=== PATIENT | female | born 1960 | race Caucasian/White ===

== ENCOUNTER → 2019-12-09 14:41 | Outpatient (BNVA) | payer OTHER, SELFPAY | PROVIDERS: PCP Internal Medicine; Visit Provider Urology | DX: Z76.89 Persons encountering health services in other specified circumstances (principal) ==

== ENCOUNTER 2020-12-06 13:56 | Outpatient (REF) | payer OTHER, SELFPAY ==
--- NOTE | ~2020-12-06 | US_ITS ---
EXAMINATION: US RETROPERITONEAL LIMITED (RENAL ONLY) CLINICAL INFORMATION: Calculus of kidney. COMPARISON: Renal ultrasound 11/30/2019 and 06/08/2019. X-ray abdomen KUB 11/30/2019. TECHNIQUE: Real-time imaging of the kidneys. FINDINGS: RIGHT KIDNEY: 11.3 x 6.3 x 5.8 cm (SAG x AP x TRV). The kidney is normal in size, contour, and echogenicity. Renal cortical thickness is normal. There is focal caliectasis versus peripelvic cyst upper midpole. There is an echogenic stone midpole measuring 0.20 0.16 x 0.20 cm. LEFT KIDNEY: 10.7 x 4.7 x 6.6 cm (SAG x AP x TRV). The kidney is normal in size, contour, and echogenicity. Renal cortical thickness is normal. No focal parenchymal lesions or hydronephrosis. There is an echogenic stone midpole measuring 0.5-0 0.3 x 0.5 cm. A dilated calyx is noted. US/US renal BI IMPRESSION: Bilateral echogenic stones. There is focal caliectasis versus peripelvic cyst upper midpole right kidney and dilated calyces in the upper and lower poles.
== END 2020-12-06 13:57 | disposition home or self-care (01) ==
LOC: HO.HMGCX 13:56
PROVIDERS: PCP Internal Medicine; Visit Provider Urology
DX: N20.0 Calculus of kidney (principal)
CPT/HCPCS: 76775

== ENCOUNTER 2021-03-14 12:26 | Outpatient (REF) | payer OTHER, SELFPAY ==
[2021-03-14 15:47] LABS: Binax Internal Control QC Valid; Binax Now Covid-19 Ag Negative (Negative)
== END 2021-03-14 12:27 | disposition home or self-care (01) ==
LOC: HO.LAB 12:26
PROVIDERS: Visit Provider Internal Medicine
DX: Z20.822 Contact with and (suspected) exposure to COVID-19 (principal)
CPT/HCPCS: 36415; C9803

== ENCOUNTER 2021-05-20 15:27 | Outpatient (REF) | payer OTHER, SELFPAY ==
--- NOTE | ~2021-05-20 | US_ITS ---
EXAMINATION: US RETROPERITONEAL LIMITED (RENAL ONLY) CLINICAL INFORMATION: Calculus of kidney. COMPARISON: Renal ultrasound 12/06/2020 and 11/30/2019. X-ray abdomen KUB 11/30/2019. TECHNIQUE: Real-time imaging of the kidneys. FINDINGS: RIGHT KIDNEY: 11.5 x 4.6 x 7.4 cm (SAG x AP x TRV). The kidney is normal in size, contour, and echogenicity. Renal cortical thickness is normal. No calculi or focal parenchymal lesions. No hydronephrosis. The calyces appear dilated. LEFT KIDNEY: 11.2 x 6.0 x 6.6 cm (SAG x AP x TRV). The kidney is normal in size, contour, and echogenicity. There is an echogenic stone midpole measuring 0.52 x 0.33 cm. A second echogenic nonobstructive stone measuring 0.27 x 0.28 x 0.38 cm. There is mild caliectasis. US/US renal BI IMPRESSION: Bilateral caliectasis. No hydronephrosis seen. There are nonobstructive left renal echogenic stones.
== END 2021-05-20 15:28 | disposition home or self-care (01) ==
LOC: HO.HMGCX 15:27
PROVIDERS: PCP Internal Medicine
DX: N20.0 Calculus of kidney (principal)
CPT/HCPCS: 76775

== ENCOUNTER → 2021-06-10 14:30 | Outpatient (BNVA) | payer OTHER, SELFPAY | PROVIDERS: PCP Internal Medicine | DX: Z13.89 Encounter for screening for other disorder (principal) ==

== ENCOUNTER 2021-10-31 14:23 | Outpatient (REF) | payer OTHER, SELFPAY ==
--- NOTE | ~2021-10-31 | US_ITS ---
EXAMINATION: US RETROPERITONEAL LIMITED (RENAL ONLY) CLINICAL INFORMATION: Calculus of kidney. COMPARISON: US retroperitoneal limited (renal only) 05/20/2021 and 12/06/2020. XR abdomen KUB 11/30/2019. TECHNIQUE: Real-time imaging of the kidneys. FINDINGS: RIGHT KIDNEY: 11.8 x 4.0 x 6.2 cm (SAG x AP x TRV). The kidney is normal in size, contour, and echogenicity. Renal cortical thickness is normal. There is mild caliectasis similar to prior studies. Probable superimposed benign parapelvic cysts are present in the renal sinus upper and lower poles under 2 cm. No additional imaging follow-up required. No renal parenchymal lesion. There are some scattered specular echoes in the renal sinus but no posterior shadowing or twinkling artifact on color Doppler to confirm nonobstructing calculi. LEFT KIDNEY: 11.8 x 6.0 x 5.6 cm (SAG x AP x TRV). The kidney is normal in size, contour, and echogenicity. Renal cortical thickness is normal. There is mild caliectasis similar to prior studies. Probable superimposed benign parapelvic cysts are present in the renal sinus largest 2.6 x 1.7 cm. No additional imaging follow-up required. No renal parenchymal lesion. There are 2 nonobstructing calculi interpolar region with mild posterior shadowing and twinkling artifact on color Doppler, larger 7 mm and smaller 3 mm. US/US renal BI IMPRESSION: -Bilateral caliectasis similar to prior studies. No interval hydronephrosis. -Bilateral probable parapelvic renal cysts similar to prior studies (Bosniak type I). -2 nonobstructing calculi on left interpolar, 7 mm and 3 mm.
== END 2021-10-31 14:24 | disposition home or self-care (01) ==
LOC: HO.HMGCX 14:23
PROVIDERS: PCP Internal Medicine
DX: N20.0 Calculus of kidney (principal)
CPT/HCPCS: 76775

== ENCOUNTER 2022-05-23 15:18 | Outpatient (REF) | payer OTHER, SELFPAY ==
--- NOTE | ~2022-05-23 | US_ITS ---
EXAMINATION: US RETROPERITONEAL LIMITED (RENAL ONLY) CLINICAL INFORMATION: Calculus of kidney. COMPARISON: Renal ultrasound 10/31/2021 and 05/20/2021. X-ray abdomen KUB 11/30/2019. TECHNIQUE: Real-time imaging of the kidneys. FINDINGS: RIGHT KIDNEY: 11.5 x 4.1 x 5.6 cm (SAG x AP x TRV). The kidney is normal in size, contour, and echogenicity. Renal cortical thickness is normal. No renal calculi or hydronephrosis. There is anechoic cyst in midpole measuring 0.80 x 0.70 x 0.60cm. A peripelvic largest cyst measures 1.9 x 1.8 x 2.2 cm. There is echogenic stone midpole measuring 0.20 x 0.15 x 0.2 cm. LEFT KIDNEY: 11.5 x 5.0 x 6.0 cm (SAG x AP x TRV). The kidney is normal in size, contour, and echogenicity. Renal cortical thickness is normal. No hydronephrosis. There is anechoic cyst midpole measuring 1.5 x 1.4 x 2.0 cm. There are multiple peripelvic cysts. There is an echogenic stone midpole measuring 0.50 x 0.40 x 0.30 cm. US/US renal BI IMPRESSION: 1. Bilateral renal cysts. 2. Bilateral nonobstructive echogenic renal calculi. No caliectasis or hydronephrosis.
== END 2022-05-23 15:19 | disposition home or self-care (01) ==
LOC: HO.HMGCX 15:18
PROVIDERS: PCP Internal Medicine; Visit Provider Urology
DX: N20.0 Calculus of kidney (principal)
CPT/HCPCS: 76775

== ENCOUNTER → 2022-07-01 14:23 | Outpatient (BNVA) | payer OTHER, SELFPAY | PROVIDERS: PCP Internal Medicine; Visit Provider Nurse Practitioner Family | DX: Z13.89 Encounter for screening for other disorder (principal) ==

== ENCOUNTER 2022-09-30 16:12 | Outpatient (REF) | payer OTHER, SELFPAY ==
[2022-09-30 17:18] LABS: Appearance Urine Clear; Color Urine Yellow; Glucose Urine UA Negative (Negative); Leukocyte Esterase Urine Small (1+) (Negative); Nitrite Urine Negative (Negative); PH 5.5 (5.0-9.0); Specific Gravity - Urine 1.025 (1.005-1.025); UMIC TRIGGER UACC YES; Urine Blood Negative (Negative); Urine Ketones Negative (Negative); Urine Protein Negative (Neg-Trace)
[2022-09-30 17:42] LABS: Bacteria Urine None Seen (None Seen); Calcium Oxalate Crystals Urine Present; Hyaline Casts Urine 0-2 /LPF (0-2); RBC Urine 0-2 /HPF (0-2); Squamous Epithelial Cell Urine 0-2 /HPF (0-2); UACC Culture Trigger YES; WBC Urine 0-5 /HPF (0-5)
== END 2022-09-30 16:13 | disposition home or self-care (01) ==
LOC: HO.LAB 16:12
PROVIDERS: PCP Internal Medicine; Visit Provider Nurse Practitioner Family
DX: R39.15 Urgency of urination (principal)
CPT/HCPCS: 81001; 81003; 87086

== ENCOUNTER 2022-10-28 07:40 | Outpatient (REF) | payer OTHER, SELFPAY ==
--- NOTE | ~2022-10-28 | CT_ITS ---
EXAMINATION: CT kidney stone CLINICAL INFORMATION: Abdominal pain. Intermittent right-sided flank pain COMPARISON: Previous renal ultrasounds most recent May 2022 TECHNIQUE: Axial images through the abdomen and pelvis without oral or IV contrast. Sagittal and coronal reconstructions on the technologist workstation were performed. This CT examination was performed using dose optimization techniques as appropriate, variously including the following: *Automated exposure control *Adjustment of mA and/or kV according to patient size (this includes techniques or standardized protocols for targeted exams where dose is matched to indication/reason for exam; i.e. extremities or head) *Use of iterative reconstruction technique DLP 3 4 6 mgy/cm. FINDINGS: There is subsegmental atelectasis at the lung bases. The liver and gallbladder are normal. The pancreas is normal. The spleen is normal. The adrenal glands are normal. There are bilateral renal peripelvic cysts. No imaging follow-up recommended. There are 2 left renal stones measuring 2 x 4 mm in the mid left kidney and 2 mm in the lower pole. No hydronephrosis, ureteral dilatation or ureteral stone is seen. The bladder is normal. Small and large bowel is unremarkable. The appendix is normal. The stomach is collapsed difficult to evaluate. No hernia. No ascites or adenopathy. Vascular structures are unremarkable. Central low attenuation in the lower uterine segment and cervix. Appearance is questionable for endometrial fluid or thickening. Follow-up pelvic ultrasound should be considered., Particularly if there is history of vaginal bleeding. Mild curvature of the dorsal spine to the left. Bony structures are otherwise unremarkable. CT/CT kidney stone IMPRESSION: Left renal stones. No right renal stone or hydronephrosis. Low-attenuation seen centrally in the lower uterine segment and cervix questionable for endometrial fluid or thickening. Follow-up pelvic ultrasound should be considered, particularly if there is history of vaginal bleeding.
== END 2022-10-28 07:41 | disposition home or self-care (01) ==
LOC: HO.CT 07:40
PROVIDERS: PCP Internal Medicine; Visit Provider Nurse Practitioner Family
DX: R10.9 Unspecified abdominal pain (principal); N20.0 Calculus of kidney
CPT/HCPCS: 74176

== ENCOUNTER 2023-07-03 14:32 | Outpatient (REF) | payer OTHER, SELFPAY ==
--- NOTE | ~2023-07-03 | US_ITS ---
EXAMINATION: US RETROPERITONEAL LIMITED (RENAL ONLY) CLINICAL INFORMATION: Calculus of kidney. COMPARISON: CT kidney stone 10/28/2022. Renal ultrasound 05/23/2022 and 10/31/2021. TECHNIQUE: Real-time imaging of the kidneys. FINDINGS: RIGHT KIDNEY: 12.4 x 4.1 x 5.8 cm (SAG x AP x TRV). The kidney is normal in size, contour, and echogenicity. Renal cortical thickness is normal. No renal calculi or hydronephrosis. Multiple simple cysts measuring up to 2.9 cm. No imaging follow-up is recommended. LEFT KIDNEY: 12.1 x 5.0 x 6.2 cm (SAG x AP x TRV). The kidney is normal in size, contour, and echogenicity. Renal cortical thickness is normal. No hydronephrosis. Multiple simple cysts measuring up to 1.8 cm. No imaging follow-up is recommended. Nonobstructing calculi in the mid kidney measuring 8 mm and 3 mm. Only one calculus is seen in the left kidney on CT from 10/28/2022. US/US renal BI IMPRESSION: Two nonobstructing left renal calculi. No hydronephrosis.
== END 2023-07-03 14:33 | disposition home or self-care (01) ==
LOC: HO.HMGCX 14:32
PROVIDERS: PCP Internal Medicine; Visit Provider Nurse Practitioner Family
DX: N20.0 Calculus of kidney (principal); N28.1 Cyst of kidney, acquired
CPT/HCPCS: 76775

== ENCOUNTER 2023-08-17 14:37 | Outpatient (AMB) | payer OTHER, SELFPAY ==
--- NOTE | 2023-08-17 15:02 | A.OFFVIS_ITS ---
Intake Visit Reasons: 1y/US(set) Intake Note: Patient presents today for follow up on: kidney stone and ultrasound results Imagin07/03/23 Urology Medications: Estrace Cream and Vitamin B6 Blood Thinner: none Utility Helicopter Repairer Required: No Accompanied by: Self / Same As Patient Allergies clarithromycin [From Biaxin] Allergy (Mild, Verified 08/17/23 15:22) HIVES Penicillins Allergy (Mild, Verified 08/17/23 15:22) + SKIN TEST penicillin V Allergy (Unknown, Verified 08/17/23 15:22) Unknown HPI Comments Details: Cherelle is a pleasant 62-year-old female patient of Dr. Ojeda. She presents to the office today for follow-up of her nephrolithiasis as well as bilateral renal cysts. When asked patient reports to be doing and feeling well. Recent renal imaging results reviewed with the patient today. Right kidney with no hydronephrosis or renal calculi. Multiple simple cysts measuring up to 2.9 cm. No imaging follow-up is recommended per radiology report. Left kidney with no hydronephrosis. Multiple simple cysts measuring up to 1.8 cm. No imaging follow-up is recommended per radiology report. Nonobstructing calculi in the mid kidney measuring 8 mm and 3 mm. When asked she currently denies any bothersome urinary issues or concerns. She denies urinary urgency, urinary frequency, incontinence, nocturia, hematuria, dysuria, foul smelling urine, changes to urinary stream, flank pain, fever, and or chills. In office urinalysis results reviewed with the patient today. PH 5.5. Discussed and stressed at length importance of adequate hydration in relation to nephrolithiasis as well as for overall health and well-being. Discussed increase in stone burden since last office visit here approximately 1 year ago. Discussed further workup versus surveillance monitoring risks and benefits of these interventions were discussed at length. She reports compliance with Estrace and vitamin B6 as prescribed. She otherwise offers no other issues or concerns at this time. Nephrolithiasis/Urolithiasis: Has seen managing oxalate through diet No active stones since last seen Discussed imaging findings Can review in 12 months Does have question of small stone on left kidney 6 mm They are here for further evaluation of nephrolithiasis, followup after stone procedure Urolithiasis was diagnosed had stone attack when on vacation 10/25. The patient previously had kidney stones whose composition w unknown. 24 Hour urine evaluation 10/25 , High oxalate > 30mg 45mg, , Good Volume > 2.00 L, , High Citrate, High uric acid, high sodium 06/26 repeat 24 hour urine, reduced oxalate, adequate volume, high sodium. Prior imaging includes 10/25 , a renal ultrasound, showing radiodense stone(s), 5mm at Right UPJ with mild hydronephrosis 12/25 , a renal ultrasound multiple bilateral 2-3 mm stones 06/26 , a renal ultrasound multiple bilateral 2-3 11/26 renal ultrasound left lower pole 8 mm stone, KUB 5 mm stone over left kidney The stone's maximum size is < 5mm. Current therapeutic plan will be to continue with imaging surveillance. FORMERLY [facility], [facility]1983 Medical History UTI (urinary tract infection) Hematuria History of kidney stones Urethral caruncle Surgical History H/O section Family History Father Osteoporosis Mother No problems noted. Review of Systems Const All systems reviewed & are unremarkable except as noted in HPI and below Reports no additional complaints Eyes Reports no additional complaints ENT Reports no additional complaints Card Reports no additional complaints Resp Reports no additional complaints GI Reports no additional complaints Reports as per HPI Musc Reports no additional complaints Neuro Reports no additional complaints Psych Reports no additional complaints Endo Reports no additional complaints David/Lymph Reports no additional complaints Physical Exam Const General: cooperative, healthy appearing, comfortable, no acute distress, well developed, alert and awake Nutritional Appearance: average body habitus Orientation/consciousness: patient oriented x3 Limitations: no limitations HEENT Head: Yes normal to inspection, Yes normocephalic and Yes atraumatic Ears: hearing grossly normal bilaterally Eyes General: appearance normal, both eyes and all related structures Neck Neck: Yes normal visual inspection and Yes trachea midline Chest Chest palpation & inspection: normal inspection of the chest Resp Effort & Inspection: normal respiratory effort and able to speak in complete sentences Cardio Rate: regular rate GI Inspection: Yes normal to inspection General: Yes no CVA tenderness Back/Spine/Pelvis Back: no CVA tenderness Skin General skin exam: no rashes or lesions noted Neuro General: patient oriented x3 Extrem General: Yes normal to inspection Psych Appearance: grossly normal and well kempt Mental Status: mental status grossly normal Speech and movement: Normal speech and movement present and Clear speech present Affect: normal affect Attitude: cooperative Thought process: Normal thought process present Thought content: Normal thought content present Insight: Fair insight present (Psych) Judgement: Fair judgement present (Psych) Results AMB Urinalysis, Automated UA Leukoctes 0 Krysten/uL Last Edit by [employer] on 08/17/23 15:25 UA Nitrite Negative Last Edit by [employer] on 08/17/23 15:25 UA Urobilinogen 0.2 mg/dL Last Edit by [employer] on 08/17/23 15:25 UA Protein 15 mg/dL Last Edit by [employer] on 08/17/23 15:25 UA pH 5.5 Last Edit by [employer] on 08/17/23 15:25 UA Blood 0 Salbador/uL Last Edit by [employer] on 08/17/23 15:25 UA Specific Winside 1.025 Last Edit by [employer] on 08/17/23 15:25 UA Ketone Negative Last Edit by [employer] on 08/17/23 15:25 UA Bilirubin 0 mg/dL Last Edit by [employer] on 08/17/23 15:25 UA Glucose 0 mg/dL Last Edit by [employer] on 08/17/23 15:25 Results Reviewed Results Reviewed: Laboratory Last Values Urine pH (Auto) 5.5 08/17/23 15:24 Specific Winside (Auto) 1.025 08/17/23 15:24 Urine Protein (Auto) 15 mg/dL 08/17/23 15:24 Glucose (UA)(Auto) 0 mg/dL 08/17/23 15:24 Urine Ketones (Auto) Negative 08/17/23 15:24 Urine Blood (Auto) 0 Salbador/uL 08/17/23 15:24 Urine Nitrite (Auto) Negative 08/17/23 15:24 Urine Bilirubin (Auto) 0 mg/dL 08/17/23 15:24 Urine Urobilinogen (Auto) 0.2 mg/dL 08/17/23 15:24 Leukocyte Esterase (Auto) 0 Krysten/uL 08/17/23 15:24 Date of Service: 07/03/23 EXAMINATION: US RETROPERITONEAL LIMITED (RENAL ONLY) FINDINGS: RIGHT KIDNEY: 12.4 x 4.1 x 5.8 cm (SAG x AP x TRV). The kidney is normal in size, contour, and echogenicity. Renal cortical thickness is normal. No renal calculi or hydronephrosis. Multiple simple cysts measuring up to 2.9 cm. No imaging follow-up is recommended. LEFT KIDNEY: 12.1 x 5.0 x 6.2 cm (SAG x AP x TRV). The kidney is normal in size, contour, and echogenicity. Renal cortical thickness is normal. No hydronephrosis. Multiple simple cysts measuring up to 1.8 cm. No imaging follow-up is recommended. Nonobstructing calculi in the mid kidney measuring 8 mm and 3 mm. Only one calculus is seen in the left kidney on CT from 10/28/2022. IMPRESSION: Two nonobstructing left renal calculi. No hydronephrosis. Assessment & Plan Assessment & Plan (1) Nephrolithiasis: Code(s): N20.0 - Calculus of kidney Category: Medical (2) Renal cyst: Code(s): N28.1 - Cyst of kidney, acquired Category: Medical Plan In office urinalysis results reviewed with the the patient today; as noted above. Recent renal imaging results reviewed with the patient today; as noted above. Discussed at length increase in stone burden since last office visit here. Discussed, educated, and stressed the importance of drinking plenty of water daily. Discussed adding 1 oz of lemon juice to water daily. Continue vitamin B6 as discussed and prescribed. Discussed surveillance monitoring verses surgical intervention; risks and benefits of these interventions were discussed at length. Patient currently denies any bothersome urinary issues or concerns. She is happy with her current voiding parameters. Discussed further metabolic workup with 24 hour urine collection and labs; patient declines at this time. Will obtain renal ultrasound in 1 year. Follow-up in 1 year with imaging to be completed prior; or sooner with any issues, concerns, and or questions. Orders: Orders AMB Urinalysis Automated Today Z13.9 - Encounter for screening, unspecified US renal BI 1 Year N20.0 - Calculus of kidney Patient Instructions: The patient had an opportunity to ask questions regarding the treatment plan. All questions were answered. Physical exam, labs, and imaging were discussed and reviewed in detail. As well as risks, benefits, and discussion of treatment choices. No major barriers to understanding were identified. The patient expressed understanding and agreement with the above treatment plan. The patient was made aware they should contact our office by phone for worsening of their current condition, the appearance of new symptoms, or with any questions or concerns. Compliance is encouraged with any medications and follow up testing that is ordered. It is a privilege to be allowed the opportunity to participate in? your urological care.? Again, if you have any questions or concerns If you have any questions or concerns please do not hesitate to contact me. The office is [phone]. This note is constructed using voice recognition software. While every effort has been made to ensure accuracy hotel operations manager errors may have been included. Yours sincerely, INDY Gonsalves Coding Level of Care Code Est Pt Level 3 (22159) Diagnoses Nephrolithiasis N20.0 Renal cyst N28.1
== END 2023-08-17 15:39 | disposition home or self-care (01) ==
PROVIDERS: Visit Provider Nurse Practitioner Family
DX: N20.0 Calculus of kidney (principal); N28.1 Cyst of kidney, acquired; Z13.9 Encounter for screening, unspecified
CPT/HCPCS: 99213

== ENCOUNTER → 2023-08-17 14:37 | Outpatient (BNVA) | payer OTHER, SELFPAY | PROVIDERS: Visit Provider Nurse Practitioner Family | DX: N20.0 Calculus of kidney (principal); N28.1 Cyst of kidney, acquired | CPT/HCPCS: 81003 ==

== ENCOUNTER 2024-03-07 15:27 | Outpatient (AMB) | payer OTHER, SELFPAY ==
--- NOTE | 2024-03-07 12:46 | MHC.OFFVIS ---
Vital Signs 03/07/24 15:34 Height 5 ft 7 in Weight 158 lb 11.725 oz BMI 24.9 BP 120/72 Blood Pressure Location Rt brachial Position Sitting Pulse 79 Pulse Source Pulse Oximeter Pulse Oximetry (%) 97 Oxygen Delivery Method Room Air Intake Visit Reasons: Persistent Cough Allergies clarithromycin [From Biaxin] Allergy (Mild, Verified 03/07/24 15:37) HIVES Penicillins Allergy (Mild, Verified 03/07/24 15:37) + SKIN TEST penicillin V Allergy (Unknown, Verified 03/07/24 15:37) Unknown HPI HPI Persistent Cough: Details: Cherelle is a pleasant 63 year old female, never smoker, with underlying GERD and hypothyroidism. She was referred by PCP for pulmonary evaluation. In January patient evaluated at urgent care, CXR 01/24 revealed LLL infiltrate and treated for PNA with Levaquin and prednisone. Symptoms of dyspnea, wheezing and productive cough persisted, COVID negative and on 02/10 PCP placed on doxycycline, medrol dosepak and tessalon perles. Chest CT 02/22 revealed resolution of LLL infiltrate, demonstrating linear scarring of the lingula, RML, LLL. Since last course of abx/steroids wheezing has resolved however continunes with persistent productive cough. She has been using nebulizer at home, unsure of effectiveness. She denies h/o asthma. She denies h/o recurrent URI. She endorses seasonal allergies and post nasal drip, no recent allergy testing. Previously under the care of ENT. Denies any pets. 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 Reports sister, never smoker, with COPD, otherwise no pertinent family history. COUNT INCLUDES [facility] Medical History UTI (urinary tract infection) Hematuria History of kidney stones Urethral caruncle Surgical History H/O section Family History Father Osteoporosis Mother No problems noted. Social History (Updated 03/07/24 @ 15:37 by Natalie Tariq [facility]) Patient Tobacco Use Status: Never used Tobacco Review of Systems Const Denies chills, Denies excessive sweating, Denies fever(s), Denies headache(s) and Denies night sweats Eyes Denies dry eyes, Denies irritation and Denies itchy eyes ENT Reports Normal hearing present, Denies headache(s), Denies nasal congestion, Denies nasal discharge, Denies post nasal drip and Denies sore throat Card Denies chest pain, Denies chest pain at rest, Denies chest pain with activity, Denies claudication, Denies leg edema, Denies dyspnea, Denies dyspnea on exertion, Denies orthopnea and Denies paroxysmal nocturnal dyspnea Resp Denies excessive phlegm production, Denies pain on inspiration, Denies pain with cough, Denies dyspnea, Denies dyspnea on exertion, Denies stridor and Denies wheezing Musc Denies myalgias Neuro Reports Normal hearing present and Denies headache(s) Endo Denies excessive sweating David/Lymph Denies lymphadenopathy Aller/Immun Denies itchy eyes, Denies seasonal rhinorrhea and Denies wheezing Physical Exam Vital Signs: Last Vital Signs Pulse 79 03/07/24 15:34 BP 120/72 03/07/24 15:34 Pulse Ox 97 03/07/24 15:34 Oxygen Delivery Method Room Air 03/07/24 15:34 BMI result Body Mass Index 24.9 Const General: cooperative, healthy appearing, comfortable, no acute distress, well developed and alert Orientation/consciousness: patient oriented x3 Limitations: no limitations HEENT Head: Yes normal to inspection, Yes normocephalic and Yes atraumatic Ears: hearing grossly normal bilaterally and external ears normal Eyes General: appearance normal, both eyes and all related structures Eyelids: Yes eyelids normal Sclerae: sclerae normal EOM: EOMs intact bilaterally Neck Neck: Yes normal visual inspection and Yes no lymphadenopathy Lymphatic: no lymphadenopathy noted Chest Chest palpation & inspection: normal inspection of the chest Resp Other: persistent harsh cough throughout visit, postexhalation cough on exam with mild improvement with DuoNeb Effort & Inspection: normal respiratory effort, able to speak in complete sentences, no audible wheezes, Actively coughing, no stridor, not tachypneic, no tripod positioning and no use of accessory muscles Cardio Jugular venous distension: no JVD Rate: regular rate Rhythm: regular rhythm Skin Other: warm, dry General skin exam: no rashes or lesions noted Neuro General: patient oriented x3 Cranial nerves: Yes Normal hearing present Cognition (Neuro): normal cognition Gait exam (Neuro): Normal gait present Extrem General: Yes normal to inspection, Yes capillary refill normal, Yes no clubbing, cyanosis or edema and Yes no pedal edema Psych Appearance: grossly normal and well kempt Speech and movement: Normal speech and movement present and Clear speech present Affect: normal affect Attitude: cooperative Thought process: Normal thought process present Thought content: Normal thought content present Insight: Good insight present (Psych) Judgement: Good judgement present (Psych) Assessment & Plan Assessment & Plan (1) Cough: Code(s): R05.9 - Cough, unspecified Category: Medical Plan Cherelle presents with persistent cough after pneumonia in January despite tessalon perles, gauifenesin with codeine, levaquin, doxycyline and medrol dose leilani. Throughout visit patient with harsh cough, will send in vantin to use. She is aware if symptoms do not improve to call office, will send for sputum culture. Recent chest CT unremarkable. Will also send for PFT which should be performed after cough improves. All questions were answered and patient is in agreement of plan. Will follow up in 4-6 weeks or sooner if needed. Orders: Orders T Spot TB 03/07/24 R05.9 - Cough, unspecified PFT pulmonary function test 03/07/24 R05.9 - Cough, unspecified Medications: New cefpodoxime must administer with a meal/food 100 mg PO BID 20 tabs 0RF Coding Level of Care Code New Pt Level 3 (80425) Diagnoses Cough R05.9
--- OUTSIDE RECORDS SUMMARY | 2024-03-07 15:29 | XMS_ITS | Continuity of Care Document ---
Author Organization [facility] Address [address] [place] [address]- Care Team Providers Care Cafeteria Team Leader Name Role Phone Andrea Ojeda MD Primary Care Physician Encounter [facility] Date(s): 01/15/24 - 02/14/24 [facility] [address] [place] [address]- Attending Physician: Nabil Oswald Admitting Physician: AdmtrNabil Referring Physician: Admtr, Ar8 Encounter Type: Triage Allergies, Adverse Reactions, Alerts Substance Criticality Severity Reaction Reaction Severity Status penicillin Active Immunizations Given and Recorded Vaccine Date Status Refusal Reason influenza virus vaccine, inactivated 1 01/11/12 Gi sanjay 1Admin Note: vis dated 09/08/2011 given Medications albuterol 0.083% inhalation solution 3 mL = 2.5 mg, Inhalation, Every 6 hours, PRN for wheezing/shortness of breath, # 60 each, 0 Refills, Maintenance, 01/15/24 6:14:00 PM EST, Solution, [id number], Partial fill upon patient request if the prescription is for a schedule II opioid drug., 170.2, cm, 01/15/24 17:53:00 EST, Height Start Date: 01/15/24 Status: Ordered Quantity: 60.0 Unit: each Repeat number: 1 Indication: Acute bronchitis, unspecified calcium calcium, Refills 0, Maintenance, 10/24/15 11:13:26 AM EDT, Compound Start Date: 10/24/15 Status: Ordered Repeat number: 1 levothyroxine 75 mcg (0.075 mg) oral tablet 1 tablet = 75 mcg, By Mouth, Daily, # 90 tablet, 3 Refills, Maintenance, 12/04/17 8:53:17 AM EDT, Tablet, [id number] Start Date: 12/04/17 Stop Date: 11/29/18 Status: Ordered Quantity: 90.0 Unit: tablet Repeat number: 4 Misc Rx Refills 0, Maintenance, 10/24/15 11:13:13 AM EDT, Compound Start Date: 10/24/15 Status: Ordered Repeat number: 1 Multivitamin Daily, 0 Refills, Maintenance, 09/22/16 9:14:24 AM EDT Start Date: 09/22/16 Status: Ordered Repeat number: 1 Vitamin B12 0 Refills, Maintenance, 11/03/17 9:23:41 AM EDT Start Date: 11/03/17 Status: Ordered Repeat number: 1 Vitamin D Vitamin D, Refills 0, Maintenance, 10/24/15 11:12:22 AM EDT, Compound Start Date: 10/24/15 Status: Ordered Repeat number: 1 Problem List Condition Confirmation Course Effective Dates Status Health St atus Informant Viral URI with cough Confirmed Active Vital Signs Most recent to oldest [Reference Range]: 1 Height 170.20 cm (01/11/12 8:12 AM) Oxygen Saturation [94-100 %] 98 % (01/11/12 8:12 AM) Pulse Rate [55-90 bpm] 74 bpm (01/11/12 8:12 AM) Blood Pressure [90-138/55-84 mm Hg] 111/ 64mm Hg (01/11/12 8:12 AM) Temperature [96.8-100.4 DegF] 98.2 DegF (01/11/12 8:12 AM) Blood pressure sites Arm, right (01/11/12 8:12 AM) Temperature Route Oral (01/11/12 8:12 AM) Weight Obtained Via Patient/family state d (01/11/12 8:12 AM) Dry Weight Obtained Via Patient/family s tated (01/11/12 8:12 AM) Social History Social History Type Response Smoking Status Never smoker entered on: 05/11/16 Sex Sex Representation Female (finding) Patient Care team information Care Team Personnel Name: Andrea Ojeda MD Position: S Outreach Member Role: PCP Address: [address] [place] [address] Telecom: Care Team Related Persons Name: DALLAS DAIGLE Insurance Providers Guarantor name: MASON DAIGLE Health Plan Information #: 1 Payer: [facility] [employer] Member Number: NA Policy Number: NA Group Number: [id number]
[2024-03-07 15:34] VITALS: BP 120/72; PULSE 79; O2SAT 97; BMI 24.9
== END 2024-03-07 16:27 | disposition home or self-care (01) ==
PROVIDERS: PCP Internal Medicine; Referring Provider Internal Medicine; Visit Provider Nurse Practitioner Family
DX: R05.9 Cough, unspecified (principal)
CPT/HCPCS: 99203

== ENCOUNTER 2024-03-16 16:30 | Outpatient (REF) | payer OTHER, SELFPAY | END 2024-03-16 16:31 | disposition home or self-care (01) | LOC: HO.LNP 16:30 | PROVIDERS: Visit Provider Nurse Practitioner Family | DX: J40 Bronchitis, not specified as acute or chronic (principal) | CPT/HCPCS: 87070; 87077; 87205 ==

== ENCOUNTER 2024-04-11 12:54 | Outpatient (AMB) | payer OTHER, SELFPAY ==
--- NOTE | 2024-04-11 12:42 | MHC.OFFVIS ---
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 Operations Tech: Operations Tech offered & declined Accompanied by: Self / Same As Patient Allergies clarithromycin [From Biaxin] Allergy (Mild, Verified 04/11/24 13:05) HIVES Penicillins Allergy (Mild, Verified 04/11/24 13:05) + SKIN TEST penicillin V Allergy (Unknown, Verified 04/11/24 13:05) Unknown Medication List - Last Reconciled 04/11/24 by Amina Ng LPN cholecalciferol (vitamin D3) 50 mcg PO DAILY estradiol 0.01%(0.1mg/gram) vaginal levothyroxine 88 mcg PO DAILY magnesium 250 mg PO DAILY multivitamin,us-hleg-[id number] (Complete Multivitamin tablet) 1 tab PO DAILY pyridoxine (vitamin B6) 50 mg PO DAILY 90 days sulfamethoxazole-trimethoprim 800-160 mg (Bactrim DS) 1 tab PO BID vit B complex 100 combo no.2 ER (Balanced B-100 Complex) tabs PO HPI HPI Persistent Cough: Details: Cherelle is a pleasant 63 year old female, never smoker, with underlying GERD and hypothyroidism. She was initially referred by PCP for pulmonary evaluation for persist cough since January 2024. She was evaluated at urgent care, CXR 01/24 revealed LLL infiltrate and treated for PNA with Levaquin and prednisone. Symptoms of dyspnea, wheezing and productive cough persisted. 02/10 PCP placed on doxycycline, medrol dosepak and tessalon perles. Chest CT 02/22 revealed resolution of LLL infiltrate, demonstrating linear scarring of the lingula, RML, LLL. At the last visit, she was sent for a sputum culture which revealed Moraxella and was treated with Bactrim, as she has PCN/macrolide allergy. Since then she reports 95% improvement in symptoms however continues with dry cough which she notes worsens shortly after entering her place of employment. She does note that she began developing allergy symptoms when she was first employed 20+ years ago and symptoms have slowly progressed over time. She reports that persistent coughing has been interfering with her ability to work efficiently and questions the air quality, especially since there is an air vent above her desk. [facility] Medical History UTI (urinary tract infection) Hematuria History of kidney stones Urethral caruncle Surgical History H/O section Family History Father Osteoporosis Mother No problems noted. Social History (Updated 03/07/24 @ 15:[address] [facility]) Patient Tobacco Use Status: Never used Tobacco Review of Systems Const Denies chills, Denies excessive sweating, Denies fever(s), Denies headache(s) and Denies night sweats Eyes Denies dry eyes, Denies irritation and Denies itchy eyes ENT Reports Normal hearing present, Denies headache(s) and Denies sore throat Card Denies chest pain, Denies chest pain at rest, Denies chest pain with activity, Denies claudication, Denies leg edema, Denies dyspnea, Denies dyspnea on exertion, Denies orthopnea and Denies paroxysmal nocturnal dyspnea Resp Denies excessive phlegm production, Denies pain on inspiration, Denies pain with cough, Denies dyspnea, Denies dyspnea on exertion, Denies stridor and Denies wheezing Musc Denies myalgias Neuro Reports Normal hearing present and Denies headache(s) Endo Denies excessive sweating David/Lymph Denies lymphadenopathy Aller/Immun Denies itchy eyes, Denies seasonal rhinorrhea and Denies wheezing Physical Exam Vital Signs: Last Vital Signs Pulse 80 04/11/24 12:56 BP 118/68 04/11/24 12:56 Pulse Ox 96 04/11/24 12:56 Oxygen Delivery Method Room Air 04/11/24 12:56 BMI result Body Mass Index 25.5 Const General: cooperative, healthy appearing, comfortable, no acute distress, well developed and alert Orientation/consciousness: patient oriented x3 Limitations: no limitations HEENT Head: Yes normal to inspection, Yes normocephalic and Yes atraumatic Ears: hearing grossly normal bilaterally and external ears normal Eyes General: appearance normal, both eyes and all related structures Eyelids: Yes eyelids normal Sclerae: sclerae normal EOM: EOMs intact bilaterally Neck Neck: Yes normal visual inspection and Yes no lymphadenopathy Lymphatic: no lymphadenopathy noted Chest Chest palpation & inspection: normal inspection of the chest Resp Other: postexhalation cough on exam Effort & Inspection: normal respiratory effort, able to speak in complete sentences, no audible wheezes, Actively coughing, no stridor, not tachypneic, no tripod positioning and no use of accessory muscles Cardio Jugular venous distension: no JVD Rate: regular rate Rhythm: regular rhythm Skin Other: warm, dry General skin exam: no rashes or lesions noted Neuro General: patient oriented x3 Cranial nerves: Yes Normal hearing present Cognition (Neuro): normal cognition Gait exam (Neuro): Normal gait present Extrem General: Yes normal to inspection, Yes capillary refill normal, Yes no clubbing, cyanosis or edema and Yes no pedal edema Psych Appearance: grossly normal and well kempt Speech and movement: Normal speech and movement present and Clear speech present Affect: normal affect Attitude: cooperative Thought process: Normal thought process present Thought content: Normal thought content present Insight: Good insight present (Psych) Judgement: Good judgement present (Psych) Assessment & Plan Assessment & Plan (1) Chronic cough: Code(s): R05.3 - Chronic cough Category: Medical (2) Environmental allergies: Code(s): Z91.09 - Other allergy status, other than to drugs and biological substances Category: Medical Plan Cherelle reports significant improvement in cough since Bactrim however continues with postexhalation cough on exam. Will send in prednisone. Will also send nebulizer for home use, she has albuterol solution at home. Patient also questioning an environmental factor contributing to persistent cough, will send for RAST. At the last visit, she was sent for PFT which is scheduled. All questions were answered and patient is in agreement of plan. Will follow up to review results or sooner if needed. Orders: Orders Resp Allergy Profile Region I Today Z91.09 - Other allergy status, other than to drugs and biological substances Complete Blood Count Auto Diff Today Z91.09 - Other allergy status, other than to drugs and biological substances Immunoglobulin E Today Z91.09 - Other allergy status, other than to drugs and biological substances Medications: New prednisone 40 mg (2 x 20 mg) PO DAILY 10 tabs 0RF Coding Level of Care Code Est Pt Level 4 (29560) Diagnoses Chronic cough R05.3 Environmental allergies Z91.09
[2024-04-11 12:56] VITALS: BP 118/68; PULSE 80; O2SAT 96; BMI 25.5
== END 2024-04-11 13:44 | disposition home or self-care (01) ==
PROVIDERS: PCP Internal Medicine; Visit Provider Nurse Practitioner Family
DX: R05.3 Chronic cough (principal); Z91.09 Other allergy status, other than to drugs and biological substances
CPT/HCPCS: 99214

== ENCOUNTER 2024-05-13 13:55 | Outpatient (REF) | payer OTHER, SELFPAY ==
--- NOTE | 2024-05-13 14:41 | PFT_ITS ---
Indication: Cough Spirometry [FEV1 to FVC 73%; FEV1 2.1 L; FVC 2.88L. No significant response to bronchodilators noted. Of note the FEF 07/26/2074 decreased to 55% predicted.] Lung Volumes [Total lung capacity 82% predicted] Diffusion Capacity [DLCO 77% predicted] Comparisons [None] Interpretation [No definitive obstructive nor restrictive ventilatory defects identified. Although the patient appears to have some degree of small airways disease. No significant response to bronchodilators noted. Lung volumes are low normal the patient does have a mild diffusion impairment. If asthma is in the differential methacholine challenge may be helpful in assessing for hyperreactive airways. Clinical correlation warranted.] MTDD
== END 2024-05-13 13:56 | disposition home or self-care (01) ==
LOC: HO.RESP 13:55
PROVIDERS: PCP Internal Medicine; Visit Provider Nurse Practitioner Family
DX: R05.9 Cough, unspecified (principal)

== ENCOUNTER → 2024-05-13 14:41 | Outpatient (BNV) | payer OTHER, SELFPAY | PROVIDERS: PCP Internal Medicine; Visit Provider Hospitalist | DX: R05.9 Cough, unspecified (principal) | CPT/HCPCS: 94060; 94727; 94729 ==

== ENCOUNTER 2024-05-23 14:47 | Outpatient (AMB) | payer OTHER, SELFPAY ==
--- NOTE | 2024-05-23 13:10 | MHC.OFFVIS ---
Vital Signs 05/23/24 14:57 Height 5 ft 7 in Weight 159 lb 13.362 oz BMI 25.0 BP 112/60 Blood Pressure Location Lt brachial Position Sitting Pulse 69 Pulse Source Pulse Oximeter Pulse Oximetry (%) 97 Oxygen Delivery Method Room Air Intake Visit Reasons: Cough Membership Correspondent Required: No Assistant Press Operator Offset: Assistant Press Operator Offset offered & declined Accompanied by: Self / Same As Patient Allergies clarithromycin [From Biaxin] Allergy (Mild, Verified 05/23/24 15:02) HIVES Penicillins Allergy (Mild, Verified 05/23/24 15:02) + SKIN TEST penicillin V Allergy (Unknown, Verified 05/23/24 15:02) Unknown Medication List - Last Reconciled 05/23/24 by Amina Ng LPN cholecalciferol (vitamin D3) 50 mcg PO DAILY estradiol 0.01%(0.1mg/gram) vaginal levothyroxine 88 mcg PO DAILY magnesium 250 mg PO DAILY multivitamin,[id number]-nhau-[id number] (Complete Multivitamin tablet) 1 tab PO DAILY pyridoxine (vitamin B6) 50 mg PO DAILY 90 days vit B complex 100 combo no.2 ER (Balanced B-100 Complex) tabs PO HPI HPI Cough: Details: Cherelle is a pleasant 63 year old female, never smoker, with underlying GERD and hypothyroidism. She was initially referred by PCP for pulmonary evaluation for persist cough since January 2024. She was evaluated at urgent care, CXR 01/24 revealed LLL infiltrate and treated for PNA with Levaquin and prednisone. Symptoms of dyspnea, wheezing and productive cough persisted. 02/10 PCP placed on doxycycline, medrol dosepak and tessalon perles. Chest CT 02/22 revealed resolution of LLL infiltrate, demonstrating linear scarring of the lingula, RML, LLL. In March, sputum culture revealed Moraxella and was treated with Bactrim, as she has PCN/macrolide allergy. She reported 95% improvement in symptoms however continued with dry cough which she notes worsens shortly after entering her place of employment. She was treated with prednisone with significant decrease in cough. She continues to report symptoms of cough when she is at work, and symptoms improve/resolve once leaving the building. She does have albuterol which she rarely uses. Today she notes cough is intermittent, unless while at work, then can be persistent. She reports dyspnea with moderate exertion, denies wheezing. Today she presents to review RAST and PFT. She denies any visits to urgent care or hospitalizations related to respiratory distress since the last visit. [facility] Medical History UTI (urinary tract infection) Hematuria History of kidney stones Urethral caruncle Surgical History H/O section Family History Father Osteoporosis Mother No problems noted. Social History (Updated 03/07/24 @ 15:37 by Natalie Tariq [facility]) Patient Tobacco Use Status: Never used Tobacco Review of Systems Const Denies chills, Denies excessive sweating, Denies fever(s), Denies headache(s) and Denies night sweats Eyes Denies dry eyes, Denies irritation and Denies itchy eyes ENT Reports Normal hearing present, Denies headache(s) and Denies sore throat Card Denies chest pain, Denies chest pain at rest, Denies chest pain with activity, Denies claudication, Denies leg edema, Denies dyspnea, Reports dyspnea on exertion, Denies orthopnea and Denies paroxysmal nocturnal dyspnea Resp Denies change in phlegm color, Denies chest congestion, Reports cough, Denies hemoptysis, Denies excessive phlegm production, Denies pain on inspiration, Denies pain with cough, Denies dyspnea, Reports dyspnea on exertion, Denies stridor and Denies wheezing Musc Denies myalgias Neuro Reports Normal hearing present and Denies headache(s) Endo Denies excessive sweating David/Lymph Denies lymphadenopathy Aller/Immun Denies itchy eyes, Denies seasonal rhinorrhea and Denies wheezing Physical Exam Vital Signs: Last Vital Signs Pulse 69 05/23/24 14:57 BP 112/60 05/23/24 14:57 Pulse Ox 97 05/23/24 14:57 Oxygen Delivery Method Room Air 05/23/24 14:57 BMI result Body Mass Index 25.0 Const General: cooperative, healthy appearing, comfortable, no acute distress, well developed and alert Orientation/consciousness: patient oriented x3 Limitations: no limitations HEENT Head: Yes normal to inspection, Yes normocephalic and Yes atraumatic Ears: hearing grossly normal bilaterally and external ears normal Eyes General: appearance normal, both eyes and all related structures Eyelids: Yes eyelids normal Sclerae: sclerae normal EOM: EOMs intact bilaterally Neck Neck: Yes normal visual inspection and Yes no lymphadenopathy Lymphatic: no lymphadenopathy noted Chest Chest palpation & inspection: normal inspection of the chest Resp Other: postexhalation cough on exam Effort & Inspection: normal respiratory effort, able to speak in complete sentences, no audible wheezes, no stridor, not tachypneic, no tripod positioning and no use of accessory muscles Cardio Jugular venous distension: no JVD Rate: regular rate Rhythm: regular rhythm Skin Other: warm, dry General skin exam: no rashes or lesions noted Neuro General: patient oriented x3 Cranial nerves: Yes Normal hearing present Cognition (Neuro): normal cognition Gait exam (Neuro): Normal gait present Extrem General: Yes normal to inspection, Yes capillary refill normal, Yes no clubbing, cyanosis or edema and Yes no pedal edema Psych Appearance: grossly normal and well kempt Speech and movement: Normal speech and movement present and Clear speech present Affect: normal affect Attitude: cooperative Thought process: Normal thought process present Thought content: Normal thought content present Insight: Good insight present (Psych) Judgement: Good judgement present (Psych) Assessment & Plan Assessment & Plan (1) Chronic cough: Code(s): R05.3 - Chronic cough Category: Medical (2) Environmental allergies: Code(s): Z91.09 - Other allergy status, other than to drugs and biological substances Category: Medical Plan Reviewed PFT which revealed no definitive obstructive nor restrictive ventilatory defects identified. Although the patient appears to have some degree of small airways disease. No significant response to bronchodilators noted, except in small to medium airways. Lung volumes are low normal the patient does have a mild diffusion impairment. We discussed empirically trialing an ICS/LABA for small airways disease, such as asthma, however she declined. She feels at this time her symptoms are mostly related to work exposures and allergies, continuing on allergen immunotherapy. RAST revealed multiple environmental allergies. Discussed ways to minimize allergen exposures. She is aware to call office if she would like to trial. She is requesting a letter to be submitted for evaluation of air quality at work, which was given to her today. All questions were answered and patient is in agreement of plan. Will follow up PRN. Coding Level of Care Code Est Pt Level 4 (32844) Diagnoses Chronic cough R05.3 Environmental allergies Z91.09
[2024-05-23 14:57] VITALS: BP 112/60; PULSE 69; O2SAT 97; BMI 25.0
== END 2024-05-23 15:20 | disposition home or self-care (01) ==
LOC: HO.HPS 14:47
PROVIDERS: PCP Internal Medicine; Visit Provider Nurse Practitioner Family
DX: R05.3 Chronic cough (principal); Z91.09 Other allergy status, other than to drugs and biological substances
CPT/HCPCS: 99214

== ENCOUNTER → 2024-05-23 14:47 | Outpatient (BNVA) | payer OTHER, SELFPAY | PROVIDERS: PCP Internal Medicine; Visit Provider Nurse Practitioner Family | DX: Z91.09 Other allergy status, other than to drugs and biological substances (principal) ==

== ENCOUNTER 2024-07-21 13:56 | Outpatient (REF) | payer OTHER, SELFPAY ==
--- NOTE | ~2024-07-21 | US_ITS ---
CLINICAL HISTORY: N20.0 - Calculus of kidney US Renal Comparison: US/SR - US RENAL BI - 07/03/23 14:51 EDT Findings: Right kidney measures 11.1 cm x 3.8 cm x 6.6 cm. Left measures 11.1 cm x 5.5 cm x 5.8 cm. Overall normal parenchymal echogenicity bilaterally. Small bilateral renal cysts are demonstrated similar to previous examination the largest in the right kidney measures 2 cm. A 6 mm nonobstructing stone visualized in midpole of left kidney. No hydronephrosis of either kidney. Normal color Doppler IMPRESSION: 1. Stable small bilateral renal cysts. 2. 6 mm left renal midpole nonobstructing stone. This document has been electronically signed by: Marisol Lilly MD on 07/21/2024 17:31:18
== END 2024-07-21 13:57 | disposition home or self-care (01) ==
LOC: HO.US 13:56
PROVIDERS: PCP Internal Medicine; Visit Provider Nurse Practitioner Family
DX: N20.0 Calculus of kidney (principal)
CPT/HCPCS: 76775

== ENCOUNTER → 2024-07-21 13:58 | Outpatient (BNV) | payer OTHER, SELFPAY | PROVIDERS: PCP Internal Medicine; Visit Provider Specialist | DX: N20.0 Calculus of kidney (principal) | CPT/HCPCS: 76775 ==

== ENCOUNTER 2024-08-22 07:35 | Outpatient (AMB) | payer OTHER, SELFPAY ==
--- NOTE | 2024-08-22 07:35 | A.OFFVIS_ITS ---
Intake Visit Reasons: 1 yr US Intake Note: Patient presents today for tele visit follow up on: kidney stone and ultrasound results Imagin07/21/24 Urology Medications: Estrace Cream and Vitamin B6 Blood Thinner: none Autobody Technician Required: No Accompanied by: Self / Same As Patient Allergies clarithromycin [From Biaxin] Allergy (Mild, Verified 08/22/24 07:57) HIVES Penicillins Allergy (Mild, Verified 08/22/24 07:57) + SKIN TEST penicillin V Allergy (Unknown, Verified 08/22/24 07:57) Unknown Medication List - Last Reconciled 08/22/24 by ANSELMO Gonsalves-MANOLO cholecalciferol (vitamin D3) 50 mcg PO DAILY estradiol 0.01%(0.1mg/gram) vaginal levothyroxine 88 mcg PO DAILY magnesium 250 mg PO DAILY mecobalamin (vitamin B12) PO multivitamin,[id number] (Complete Multivitamin tablet) 1 tab PO DAILY pyridoxine (vitamin B6) 50 mg PO DAILY 90 days HPI Comments Details: Cherelle is a pleasant 63-year-old female patient of Dr. Ojeda. She presents to the office today for follow-up of her nephrolithiasis as well as bilateral renal cysts. When asked patient reports to be doing and feeling well. Recent renal imaging results reviewed with the patient today. 07/31 overall normal parenchymal echogenicity bilaterally. Small bilateral renal cysts are demonstrating similar to previous examination the largest in the right kidney measuring 2 cm. A 6 mm nonobstructing stone visualized in mid pole of the left kidney. No hydronephrosis noted bilaterally. When asked she currently denies any bothersome urinary issues or concerns. She denies urinary urgency, urinary frequency, incontinence, nocturia, hematuria, dysuria, foul smelling urine, changes to urinary stream, flank pain, fever, and or chills. We discussed decrease in stone burden when compared imaging from previous year. When asked she does report to be attempting to drink plenty of water daily. She reports compliance with vitamin B6 and Estrace as prescribed. Will continue with surveillance monitoring. She otherwise offers no other issues or concerns at this time. PREVIOUS OFFICE NOTE: Nephrolithiasis/Urolithiasis: Has seen managing oxalate through diet No active stones since last seen Discussed imaging findings Can review in 12 months Does have question of small stone on left kidney 6 mm They are here for further evaluation of nephrolithiasis, followup after stone procedure Urolithiasis was diagnosed had stone attack when on vacation 10/25. The patient previously had kidney stones whose composition w unknown. 24 Hour urine evaluation 10/25 , High oxalate > 30mg 45mg, , Good Volume > 2.00 L, , High Citrate, High uric acid, high sodium 06/26 repeat 24 hour urine, reduced oxalate, adequate volume, high sodium. Prior imaging includes 10/25 , a renal ultrasound, showing radiodense stone(s), 5mm at Right UPJ with mild hydronephrosis 12/25 , a renal ultrasound multiple bilateral 2-3 mm stones 06/26 , a renal ultrasound multiple bilateral 2-3 11/26 renal ultrasound left lower pole 8 mm stone, KUB 5 mm stone over left kidney The stone's maximum size is < 5mm. Current therapeutic plan will be to continue with imaging surveillance. [facility] Medical History UTI (urinary tract infection) Hematuria History of kidney stones Urethral caruncle Surgical History H/O section Family History Father Osteoporosis Mother No problems noted. Social History Patient Tobacco Use Status: Never used Tobacco Review of Systems Const All systems reviewed & are unremarkable except as noted in HPI and below Reports no additional complaints Eyes Reports no additional complaints ENT Reports no additional complaints Card Reports no additional complaints Resp Reports no additional complaints GI Reports no additional complaints Reports as per HPI Musc Reports no additional complaints Neuro Reports no additional complaints Psych Reports no additional complaints Endo Reports no additional complaints David/Lymph Reports no additional complaints Physical Exam Const General: cooperative, healthy appearing, comfortable, no acute distress, well developed, alert and awake Resp Effort & Inspection: normal respiratory effort and able to speak in complete sentences Psych Appearance: grossly normal and well kempt Mental Status: mental status grossly normal Speech and movement: Clear speech present Affect: normal affect Attitude: cooperative Thought content: Normal thought content present Insight: Fair insight present (Psych) Judgement: Fair judgement present (Psych) Telehealth Telehealth Telehealth Platform: Pinger Location of provider rendering services: practice address Location of patient: address on file Patient Identification confirmed using: Name, : Yes Telehealth method: video Patient verbally consented to treatment: Yes Patient verbally consented to billing insurance company: Yes Patient informed of any privacy concerns related to visit: Yes Minutes spent on Phone/Video with Pt.: 15 Results Reviewed Results Reviewed: Date of Service: 07/21/24 Procedure(s): US renal BI Findings: Right kidney measures 11.1 cm x 3.8 cm x 6.6 cm. Left measures 11.1 cm x 5.5 cm x 5.8 cm. Overall normal parenchymal echogenicity bilaterally. Small bilateral renal cysts are demonstrated similar to previous examination the largest in the right kidney measures 2 cm. A 6 mm nonobstructing stone visualized in midpole of left kidney. No hydronephrosis of either kidney. Normal color Doppler IMPRESSION: 1. Stable small bilateral renal cysts. 2. 6 mm left renal midpole nonobstructing stone. Assessment & Plan Assessment & Plan (1) Renal cyst: Code(s): N28.1 - Cyst of kidney, acquired Category: Medical (2) Nephrolithiasis: Code(s): N20.0 - Calculus of kidney Category: Medical Plan Recent renal imaging results reviewed with the patient today; as noted above. She currently denies any bothersome urinary issues or concerns. She reports be happy with current voiding parameters. Continue with vitamin B6 as discussed and prescribed. Continue adding 1 oz of lemon juice to water daily. Continue with adequate hydration as discussed. Will obtain renal ultrasound in 1 year. Follow-up in 1 year with imaging to be completed prior; or sooner with any issues, concerns, and or questions. Orders: Orders US renal BI 1 Year N20.0 - Calculus of kidney Patient Instructions: The patient had an opportunity to ask questions regarding the treatment plan. All questions were answered. Physical exam, labs, and imaging were discussed and reviewed in detail. As well as risks, benefits, and discussion of treatment choices. No major barriers to understanding were identified. The patient expressed understanding and agreement with the above treatment plan. The patient was made aware they should contact our office by phone for worsening of their current condition, the appearance of new symptoms, or with any questions or concerns. Compliance is encouraged with any medications and follow up testing that is ordered. It is a privilege to be allowed the opportunity to participate in? your urological care.? Again, if you have any questions or concerns If you have any questions or concerns please do not hesitate to contact me. The office is [phone]. This note is constructed using voice recognition software. While every effort has been made to ensure accuracy wellness nurse rn errors may have been included. Yours sincerely, INDY Gonsalves Coding Level of Care Code Tele Est Pt Level 3 (55441) Diagnoses Renal cyst N28.1 Nephrolithiasis N20.0
== END 2024-08-22 08:07 | disposition home or self-care (01) ==
LOC: HO.HUSH 07:35
PROVIDERS: PCP Internal Medicine; Visit Provider Nurse Practitioner Family
DX: N28.1 Cyst of kidney, acquired (principal); N20.0 Calculus of kidney
CPT/HCPCS: 99213

== ENCOUNTER → 2024-08-22 07:35 | Outpatient (BNVA) | payer OTHER, SELFPAY | PROVIDERS: PCP Internal Medicine; Visit Provider Nurse Practitioner Family ==

== ENCOUNTER 2024-11-14 16:05 | Outpatient (AMB) | payer OTHER, SELFPAY ==
--- OUTSIDE RECORDS SUMMARY | 2024-09-08 11:30 | XMS_ITS ---
Author Organization [facility] Address [address] [place], [place] [id number] Care Team Providers Care Production Supv Name Role Phone WAI MENDOZA Primary Care Provider MEDICATIONS Medication SIG (Take, Route, Fr equency, Duration) Notes Start Date End Date Status Meloxicam 15 MG 1 tablet Orally Once a day for 30 day(s) 09/08/2024 Active SOCIAL HISTORY Sex Assigned At : Social History Observation Description Sex Assigned At Female Encounters Encounter Location Date Provider Diagnosis [facility] [address] [place] [address] 09/08/2024 WAI MENDOZA PLAN OF TREATMENT Medication Medication Name Sig Start Date Stop Date Notes Meloxicam 15 MG 1 tablet Orally Once a day for 30 day(s) 0 09/08/2024
--- OUTSIDE RECORDS SUMMARY | 2024-09-10 10:42 | XMS_ITS ---
Author Organization [facility] Address [facility] [place], [place] [id number] Care Team Providers Care Career Technical Supervisor Name Role Phone WAI MENDOZA Primary Care Provider REASON FOR VISIT lipids SOCIAL HISTORY Sex Assigned At : Social History Observation Description Sex Assigned At Female Encounters Encounter Location Date Provider Diagnosis [facility] [address] [place] [address] 09/10/2024 WAI MENDOZA PLAN OF TREATMENT No Information
--- OUTSIDE RECORDS SUMMARY | 2024-09-12 11:15 | XMS_ITS ---
Author Organization [facility] Address [facility] [place], [place] [phone] Care Team Providers Care Psychologist Industrial Organizational Name Role Phone WAI MENDOZA Primary Care Provider [phone] REASON FOR VISIT xray normal SOCIAL HISTORY Sex Assigned At : Social History Observation Description Sex Assigned At Female Encounters Encounter Location Date Provider Diagnosis [facility] [address] [place] [address] 09/12/2024 WAI MENDOZA PLAN OF TREATMENT No Information
--- OUTSIDE RECORDS SUMMARY | 2024-09-12 11:35 | XMS_ITS ---
Author Organization [facility] Address [facility] [place], [place] [id number] Care Team Providers Care Multigrapher Name Role Phone WAI MENDOZA Primary Care Provider REASON FOR VISIT (W)xray SOCIAL HISTORY Sex Assigned At : Social History Observation Description Sex Assigned At Female Encounters Encounter Location Date Provider Diagnosis [facility] [address] [place] [address] 09/12/2024 WAI MENDOZA PLAN OF TREATMENT No Information
--- OUTSIDE RECORDS SUMMARY | 2024-09-13 05:48 | XMS_ITS ---
Author Organization [facility] Address [facility] [place], [place] [phone] Care Team Providers Care Career Guidance Counselor Name Role Phone WAI MENDOZA Primary Care Provider REASON FOR VISIT xray SOCIAL HISTORY Sex Assigned At : Social History Observation Description Sex Assigned At Female Encounters Encounter Location Date Provider Diagnosis [facility] [address] [place] [address] 09/13/2024 WAI MENDOZA PLAN OF TREATMENT No Information
--- OUTSIDE RECORDS SUMMARY | 2024-11-14 18:44 | XMS_ITS | Patient Health Record ---
Author Organization [facility] Address [address], [place] [id number] Care Team Providers Care Early Childhood Education Specialist Name Role Phone AWI MENDOZA Primary Care Provider BAYRON SORENSON Unavailable [phone] ALLERGIES Allergen (clinical drug ingredient) Drug/Non Drug Allergy documented on EMR Reaction Allergy Type Onset Date Status Penicillin Unknown Drug Allergy Active RESULTS Component Value Reference Range Notes EKG Reviewed date:09/12/2024 02:40:47 PM Interpretation: Performing Lab: Notes/Report: ECGDiastolicBP ECGHr ECGPRInterval ECGPWaveAxis ECGQRSDuration ECGQrsWaveAxis ECGQTcInterval ECGQTInterval ECGSystolicBP ECGTWaveAxis RR_DiastolicBP RR_MaxRRInterval RR_MeanHR RR_MeanRRInterval RR_MinRRInterval RR_NumBeats RR_NumNormalBeats RR_SystolicBP XR Tibia/Fibula Right 2 view s Reviewed date:09/13/2024 09:48:55 AM Interpretation: Performing Lab: Notes/Report: C-Reactive Protein, Cardiac- [id number] Reviewed date:09/11/2024 02:10:08 PM Interpretation: Performing Lab:Bessy Kim, [address] [facility], [place], Phone - [phone], Director - Yasmine Notes/Report: C-Reactive Protein, Cardiac 1.32 0.00-3.00 mg/ L Relative Risk for Future Cardiovascular Event Low <1.00 Average 1.00 - 3.00 High >3.00 Lipid Panel-[id number] Reviewed date:09/10/2024 02:43:43 PM Interpretation: Performing Lab:[facility] [place], [address] [facility], Phone - [phone], Director - Yasmine Notes/Report: Cholesterol, Total 196 100-199 mg/dL Triglycerides 68 0-149 mg/dL HDL Cholesterol 66 >39 mg/dL VLDL Cholesterol Cortez 12 5-40 mg/dL LDL Chol Calc ([facility]) 118 0-99 mg/dL LDL Calc Comment: CBC With Differential/Platel et-[id number] Reviewed date:02/17/2024 06:55:01 AM Interpretation: Performing Lab:[facility] [place], [address] [facility], Phone - [phone], Director - Yasmine Notes/Report: WBC 5.9 3.4-10.8 x10E3/uL RBC 4.63 3.77-5.28 x10E6/uL Hemoglobin 13.9 11.1-15.9 g/dL Hematocrit 43.6 34.0-46.6 % MCV 94 79-97 fL MCH 30.0 26.6-33.0 pg MCHC 31.9 31.5-35.7 g/dL RDW 12.0 11.7-15.4 % Platelets 437 150-450 x10E3/uL Neutrophils 56 Not Estab. % Lymphs 28 Not Estab. % Monocytes 13 Not Estab. % Eos 2 Not Estab. % Basos 1 Not Estab. % Immature Cells Neutrophils (Absolute) 3.3 1.4-7.0 x10E3/uL Lymphs (Absolute) 1.7 0.7-3.1 x10E3/uL Monocytes(Absolute) 0.8 0.1-0.9 x10E3/uL Eos (Absolute) 0.1 0.0-0.4 x10E3/uL Baso (Absolute) 0.0 0.0-0.2 x10E3/uL Immature Granulocytes 0 Not Estab. % Immature Grans (Abs) 0.0 0.0-0.1 x10E3/uL NRBC Hematology Comments: XR Knee Right 3 views Reviewed date:09/12/2024 03:35:58 PM Interpretation: Performing Lab: Notes/Report: CBC With Differential/Platel et-[id number] Reviewed date:02/12/2024 08:08:29 AM Interpretation: Performing Lab:[facility] [place], Phone - [phone], Director - Yasmine Notes/Report: WBC 5.9 3.4-10.8 x10E3/uL RBC 4.52 3.77-5.28 x10E6/uL Hemoglobin 14.1 11.1-15.9 g/dL Hematocrit 42.0 34.0-46.6 % MCV 93 79-97 fL MCH 31.2 26.6-33.0 pg MCHC 33.6 31.5-35.7 g/dL RDW 11.8 11.7-15.4 % Platelets 453 150-450 x10E3/uL Neutrophils 57 Not Estab. % Lymphs 28 Not Estab. % Monocytes 11 Not Estab. % Eos 3 Not Estab. % Basos 1 Not Estab. % Immature Cells Neutrophils (Absolute) 3.4 1.4-7.0 x10E3/uL Lymphs (Absolute) 1.6 0.7-3.1 x10E3/uL Monocytes(Absolute) 0.6 0.1-0.9 x10E3/uL Eos (Absolute) 0.2 0.0-0.4 x10E3/uL Baso (Absolute) 0.0 0.0-0.2 x10E3/uL Immature Granulocytes 0 Not Estab. % Immature Grans (Abs) 0.0 0.0-0.1 x10E3/uL NRBC Hematology Comments: Vitamin [id number] Reviewed date:09/10/2024 02:43:43 PM Interpretation: Performing Lab:[facility], Phone - [phone], Director - Yasmine Notes/Report: Vitamin B12 828 699-7989 pg/mL Urinalysis, Complete w/ME-00 3772 Reviewed date:09/09/2024 08:51:25 AM Interpretation: Performing Lab:[facility] [address], Phone - [phone], Director - Yasmine Notes/Report: Specific [place] 1.026 1.005-1.030 pH 5.5 5.0-7.5 Urine-Color Yellow Yellow Appearance Clear Clear WBC Esterase Negative Negative Protein Trace Negative/Trace Glucose Negative Negative Ketones 1+ Negative Occult Blood Negative Negative Bilirubin Negative Negative Urobilinogen,Semi-Qn 0.2 0.2-1.0 mg/dL Nitrite, Urine Negative Negative Microscopic Examination Micr oscopic follows if indicated. Microscopic Examination See below: Micr oscopic was indicated and was performed. WBC None seen 0 - 5 /hpf RBC 0-2 0 - 2 /hpf Epithelial Cells (non renal) 0-10 0 - 10 /hpf Epithelial Cells (renal) Casts None seen None seen /lpf Cast Type Crystals Crystal Type Mucus Threads Bacteria Few None seen/Few Yeast Trichomonas Comment XR Calcaneus (Heel) Right 2- 3 views Reviewed date:09/12/2024 03:15:29 PM Interpretation: Performing Lab: Notes/Report: BMP8+eGFR-[id number] Reviewed date:02/12/2024 08:08:29 AM Interpretation: Performing Lab:Bessy Kim, [address] [facility], [place], Phone - [phone], Director - MDJodry Notes/Report: Glucose 95 70-99 mg/dL BUN 19 8-27 mg/dL Creatinine 0.83 0.57-1.00 mg/dL eGFR 78 >59 mL/min/1.73 BUN/Creatinine Ratio 23 12-28 Sodium 141 134-144 mmol/L Potassium 5.4 3.5-5.2 mmol/L Chloride 102 96-106 mmol/L Carbon Dioxide, Total 23 20-29 mmol/L Anion Gap 16.0 10.0-18.0 mmol/L Calcium 10.0 8.7-10.3 mg/dL Lipid Panel-[id number] Reviewed date:02/17/2024 06:55:01 AM Interpretation: Performing Lab:Bessy Kim, [address] [facility], [place], Phone - [phone], Director - MDJodry Notes/Report: Cholesterol, Total 199 100-199 mg/dL Triglycerides 56 0-149 mg/dL HDL Cholesterol 70 >39 mg/dL VLDL Cholesterol Cortez 10 5-40 mg/dL LDL Chol Calc ([facility]) 119 0-99 mg/dL LDL Calc Comment: CXR Reviewed date:02/11/2024 03:09:01 PM Interpretation: Performing Lab: Notes/Report: XR Lumbosacral Spine Reviewed date:09/13/2024 09:48:15 AM Interpretation: Performing Lab: Notes/Report: BMP8+eGFR-[id number] Reviewed date:02/17/2024 06:55:01 AM Interpretation: Performing Lab:[facility] [place], [address] [facility], [place], Phone - [phone], Director - Yasmine Notes/Report: Glucose 84 70-99 mg/dL BUN 20 8-27 mg/dL Creatinine 0.82 0.57-1.00 mg/dL eGFR 79 >59 mL/min/1.73 BUN/Creatinine Ratio 24 12-28 Sodium 140 134-144 mmol/L Potassium 4.5 3.5-5.2 mmol/L Chloride 102 96-106 mmol/L Carbon Dioxide, Total 22 20-29 mmol/L Anion Gap 16.0 10.0-18.0 mmol/L Calcium 10.1 8.7-10.3 mg/dL CBC With Differential/Platel et-[id number] Reviewed date:01/29/2024 09:00:25 AM Interpretation: Performing Lab:[facility] [place], [address] [facility], [place], Phone - [phone], Director - Yasmine Notes/Report: WBC 10.8 3.4-10.8 x10E3/uL Effective February 08, 2024 profile [id number] WBC will be made non-orderable as a stand-alone order code. RBC 4.68 3.77-5.28 x10E6/uL Hemoglobin 14.5 11.1-15.9 g/dL Hematocrit 43.6 34.0-46.6 % MCV 93 79-97 fL MCH 31.0 26.6-33.0 pg MCHC 33.3 31.5-35.7 g/dL RDW 12.1 11.7-15.4 % Platelets 424 150-450 x10E3/uL Neutrophils 75 Not Estab. % Lymphs 12 Not Estab. % Monocytes 10 Not Estab. % Eos 2 Not Estab. % Basos 0 Not Estab. % Immature Cells Neutrophils (Absolute) 8.2 1.4-7.0 x10E3/uL Lymphs (Absolute) 1.3 0.7-3.1 x10E3/uL Monocytes(Absolute) 1.0 0.1-0.9 x10E3/uL Eos (Absolute) 0.2 0.0-0.4 x10E3/uL Baso (Absolute) 0.0 0.0-0.2 x10E3/uL Immature Granulocytes 1 Not Estab. % Immature Grans (Abs) 0.1 0.0-0.1 x10E3/uL NR Hematology Comments: CT Chest without IV contrast Reviewed date:02/24/2024 07:20:04 AM Interpretation: Performing Lab: Notes/Report: Lipid Panel-[id number] Reviewed date:02/12/2024 08:05:25 AM Interpretation: Performing Lab:[facility] [place], [address] [facility], Phone - [phone], Director - MDClintony Notes/Report: Cholesterol, Total 198 100-199 mg/dL Triglycerides 125 0-149 mg/dL HDL Cholesterol 60 >39 mg/dL VLDL Cholesterol Cortez 22 5-40 mg/dL LDL Chol Calc ([facility]) 116 0-99 mg/dL LDL Calc Comment: Folate (Folic Acid), Serum-0 [id number] Reviewed date:09/10/2024 02:43:43 PM Interpretation: Performing Lab:[facility] [place], [address] [facility], Phone - [phone], Director - Yasmine Notes/Report: Folate (Folic Acid), Serum >20.0 >3.0 ng/mL A serum folate concentration of less than 3.1 ng/mL is considered to represent clinical deficiency. XR Chest 2 views Reviewed date:01/26/2024 02:33:06 PM Interpretation: Performing Lab: Notes/Report: HCV Antibody-[id number] Reviewed date:09/10/2024 09:38:40 AM Interpretation: Performing Lab:[facility], [address], [address], [place], Phone - [phone], Director - [facility] Notes/Report: Hep C Virus Ab Non Reactive Non Reactive HCV antibody alone does not differentiate between previously resolved infection and active infection. Equivocal and Reactive HCV antibody results should be followed up with an HCV RNA test to support the diagnosis of active HCV infection. BMP8+eGFR-[id number] Reviewed date:01/29/2024 09:00:25 AM Interpretation: Performing Lab:[facility] [place], [address] [facility], Phone - [phone], Director - Yasmine Notes/Report: Glucose 96 70-99 mg/dL BUN 20 8-27 mg/dL Creatinine 0.89 0.57-1.00 mg/dL eGFR 72 >59 mL/min/1.73 BUN/Creatinine Ratio 22 12-28 Sodium 140 134-144 mmol/L Potassium 4.9 3.5-5.2 mmol/L Chloride 102 96-106 mmol/L Carbon Dioxide, Total 22 20-29 mmol/L Anion Gap 16.0 10.0-18.0 mmol/L Calcium 9.9 8.7-10.3 mg/dL TSH-[id number] Reviewed date:02/12/2024 08:08:29 AM Interpretation: Performing Lab:[facility], [address] [facility] [address], [place], Phone - [phone], Director - Yasmine Notes/Report: TSH 1.210 0.450-4.500 uIU/mL REASON FOR REFERRAL Reason 02/11/24 w appt Set up consultation with Dr. Gao from [place] [facility] for persistent cough x 6+ weeks despite treatments need to send copy of the x-rays my notes labs to him Diagnosis 1 Persistent cough (R0 5.3) [facility] Referring Provider First Name WAI Referring Provider Last Name REJI Ref[facility] Referred Provider COOKIE GAO Referred Provider Specialty Pulmonary Di seases General Notes Annie SANDHU Admin 07/2023 01:51:23 PM > per [place] [facility] medical referral, notes and labs were faxed to [phone]>faxed xray separately Referral Priority Urgent Reason Referral Dr. Bayron Ornelas patient will call make appointment Diagnosis 1 Pain of right heel ( M79.671) [facility] Referring Provider First Name WAI Referring Provider Last Name REJI Referring Provider [facility] Referral Priority Routine MEDICATIONS Medication SIG (Take, Route, Frequency, Duration) Notes Start Date End Date Status Estradiol 0.1 MG/GM _insert 1 GRAM VAGIN ALLY FOR 2WKS AND THEN 3 TIMES EVERY WEEK FOR 90 DAYS for 90 Active Meloxicam 15 MG 1 tablet Orally Once a day for 30 day(s) 09/08/2024 Active Vitamin B-12 1000 MCG as directed Orally Active Vitamin D-3 125 MCG (5000 UT) 1 tablet Orally Once a day for 30 day(s) Active Vitamin B-6 100 MG 1 tablet Orally Once a day for 30 day(s) Active Levothyroxine Sodium 88 MCG TAKE 1 TABLE T BY MOUTH EVERY DAY for 90 Active SOCIAL HISTORY Tobacco Use: Social History Observation Description Date Details (start date - stop date) Never Smoker NA - NA Sex Assigned At : Social History Observation Description Sex Assigned At Female Smoking Question Answer Notes Are you a: never smoker PROBLEMS Problem Type ICD Code Onset Dates Problem Status W/U Status Risk SNOMED Code Notes Problem Gastro-esophagea l reflux disease without esophagitis (K21.9) Active confirmed Gastro-esophage a l reflux disease without esophagitis (991350449) Problem Essential (primary) hypertension (I10) Active confirmed Essential hypertension (85381846) Problem Atrophy of thyroid (acquired) (E03.4) Active confirmed Atrophy of thyroid - acquired (144098220) Problem Disorder of lipoprotein metabolism, 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 9 [place] [id number] 01/29/2024 BAYRON SORENSON [address] [address] 01/29/2024 WAI MENDOZA [place] [id number] 02/10/2024 WAI MENDOZA [place] [id number] 02/11/2024 WAI MENDOZA Persistent cough R05.3 ; Disorder of lipoprotein metabolism, unspecified E78.9 ; Atrophy of thyroid (acquired) E03.4 and Gastro-esophageal reflux disease without esophagitis K21.9 [facility] [address] [place] [phone] 02/11/2024 WAI MENDOZA [facility] [address] [place] [phone] 02/11/[address] [address] 02/12/2024 WAI MNEDOZA Essential (primary) hypertension I10 [address] [address] 02/24/2024 WAI MENDOZA [address] [address] 08/15/2024 WAI MENDOZA [address] [address] 09/08/2024 WAI MENDOZA [address] [address] 09/08/2024 WAI MENDOZA Disorder of lipoprotein metabolism, unspecified E78.9 ; Atrophy of thyroid (acquired) E03.4 ; Gastro-esophageal reflux disease without esophagitis K21.9 ; Encntr for general adult medical exam w/o abnormal findings Z00.00 ; Kidney stones N20.0 ; Essential (primary) hypertension I10 ; History of osteopenia Z87.39 ; Deficiency of other specified B group vitamins E53.8 ; Pain of right heel M79.671 and Right leg pain M79.[address] [address] 09/08/2024 WAI MENDOZA [address] [address] 09/10/2024 WAI MENDOZA [address] [address] 09/12/2024 WAI MENDOZA [address] [address] 09/12/[address] [address] 09/13/2024 WAI MENDOZA ASSESSMENTS Encounter Date Diagnosis Assessment Notes Treatment Notes Treatment Clinical Notes Section Notes 09/08/2024 Disorder of lipoprotein metabolism, unspecified (ICD-10 - E78.9) Check lipid profile LDL goal less than 100 optimally check total cholesterol less than 200 optimal. Check CRP for restratification. Low-fat Mediterranean diet regular exercise 09/08/2024 Atrophy of thyroid (acquired) (ICD-10 - E03.4) Stable check TSH follow-up in 6 months 02/12/2024 Essential (primary) hypertension (ICD-10 - I10) 02/11/2024 Persistent cough (ICD-10 - R05.3) With somewhat of a change in the symptoms at this point will add doxycycline 100 twice daily for 10 days. Add a Medrol Dosepak. Add Tessalon Perles. Follow-up CT scan of the chest. Consultation Dr. Gao. Check CBC with differential 02/11/2024 Disorder of lipoprotein metabolism, unspecified (ICD-10 - E78.9) Follow-up 3 to 6 months low-fat diet etc. Rx in the system for lipid profile in 1 week 01/27/2024 Acute pneumonia (ICD-10 - J18.9) 01/25/2024 Acute cough (ICD-10 - R05.1) 02/11/2024 Atrophy of thyroid (acquired) (ICD-10 - E03.4) Check TSH follow-up in 6 months if at goal 09/08/2024 Gastro-esophagea l reflux disease without esophagitis (ICD-10 - K21.9) Doing well no significant GERD dietary recommendations include minimizing caffeine from chocolate citrus etc. 02/11/2024 Gastro-esophagea l reflux disease without esophagitis (ICD-10 - K21.9) Stable doing well PPI. Add a PPI for 4 weeks. Symptoms are worse at nighttime and wondering whether her silently reflux is playing a role here 09/08/2024 Encntr for general adult medical exam w/o abnormal findings (ICD-10 - Z00.00) 09/08/2024 Kidney stones (ICD-10 - N20.0) Keep well-hydrated recommend greater than 2 L of water a day. Follow-up with renal 09/08/2024 Essential (primary) hypertension (ICD-10 - I10) Blood pressure stable. EKG normal sinus rhythm no change in therapy 09/08/2024 History of osteopenia (ICD-10 - Z87.39) 09/08/2024 Deficiency of other specified B group vitamins (ICD-10 - E53.8) 09/08/2024 Pain of right heel (ICD-10 - M79.671) Check x-ray right heel. Check labs. Trial of meloxicam. Consult podiatry 09/08/2024 Right leg pain (ICD-10 - M79.604) Check x-rays of the lower extremities. 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 Mendoza December [place] [facility] July 2019 for shraddha luation DRAPERY AND UPHOLSTERY ESTIMATOR December 2022 negative Mammogram April 2023 negative Renal ultrasound June 2023 2 left renal stones nonobstructing Dermatology 2023 Mammogram April 2024 negative Bone density April 2024 o steopenia with a acceptable FRAX report see report Chest CT February 2024 no suspicious les ions Surgical History Surgery Date(Month/Year)
== END 2024-11-14 16:10 | disposition home or self-care (01) ==
LOC: HO.HMGAL 16:05
PROVIDERS: PCP Internal Medicine; Visit Provider Registered Nurse Emergency
DX: J30.89 Other allergic rhinitis (principal)
CPT/HCPCS: 95117; 95165

== ENCOUNTER 2024-12-12 16:12 | Outpatient (AMB) | payer OTHER, SELFPAY ==
--- OUTSIDE RECORDS SUMMARY | 2024-09-08 11:30 | XMS_ITS ---
Author Organization [facility] Address [address] [place], [place] [id number] Care Team Providers Care Computer Drafter Name Role Phone WAI MENDOZA Primary Care Provider MEDICATIONS Medication SIG (Take, Route, Fr equency, Duration) Notes Start Date End Date Status Meloxicam 15 MG 1 tablet Orally Once a day for 30 day(s) 09/08/2024 Active SOCIAL HISTORY Sex Assigned At : Social History Observation Description Sex Assigned At Female Encounters Encounter Location Date Provider Diagnosis [facility] [address] [place] [address] 09/08/2024 WAI MENDOZA PLAN OF TREATMENT Medication Medication Name Sig Start Date Stop Date Notes Meloxicam 15 MG 1 tablet Orally Once a day for 30 day(s) 0 09/08/2024
--- OUTSIDE RECORDS SUMMARY | 2024-09-10 10:42 | XMS_ITS ---
Author Organization [facility] Address [address] [place], [place] [phone] Care Team Providers Care Locomotive Inspector Name Role Phone WAI MENDOZA Primary Care Provider [phone] REASON FOR VISIT lipids SOCIAL HISTORY Sex Assigned At : Social History Observation Description Sex Assigned At Female Encounters Encounter Location Date Provider Diagnosis [facility] [address] [facility] [place] [address] 09/10/2024 WAI MENDOZA PLAN OF TREATMENT No Information
--- OUTSIDE RECORDS SUMMARY | 2024-09-12 11:15 | XMS_ITS ---
Author Organization [facility] Address [address] [place], [place] [id number] Care Team Providers Care Digital X Ray Service Engineer Name Role Phone WAI MENDOZA Primary Care Provider [phone] REASON FOR VISIT xray normal SOCIAL HISTORY Sex Assigned At : Social History Observation Description Sex Assigned At Female Encounters Encounter Location Date Provider Diagnosis [facility] [address] [place] [address] 09/12/2024 WAI MENDOZA PLAN OF TREATMENT No Information
--- OUTSIDE RECORDS SUMMARY | 2024-09-12 11:35 | XMS_ITS ---
Author Organization [facility] Address [address] [place], [place] [id number] Care Team Providers Care Kiln Loader Name Role Phone WAI MENDOZA Primary Care Provider REASON FOR VISIT (W)xray SOCIAL HISTORY Sex Assigned At : Social History Observation Description Sex Assigned At Female Encounters Encounter Location Date Provider Diagnosis [facility] [address] [place] [address] 09/12/2024 WAI MENDOZA PLAN OF TREATMENT No Information
--- OUTSIDE RECORDS SUMMARY | 2024-09-13 05:48 | XMS_ITS ---
Author Organization [facility] Address [address] [place], [place] [id number] Care Team Providers Care Window Decorator Name Role Phone WAI MENDOZA Primary Care Provider REASON FOR VISIT xray SOCIAL HISTORY Sex Assigned At : Social History Observation Description Sex Assigned At Female Encounters Encounter Location Date Provider Diagnosis [facility] [address] [place] [address] 09/13/2024 WAI MENDOZA PLAN OF TREATMENT No Information
--- OUTSIDE RECORDS SUMMARY | 2024-12-12 18:26 | XMS_ITS | Patient Health Record ---
Author Organization [facility] Address [address] [place], [place] [id number] Care Team Providers Care Exterminator Helper Name Role Phone WAI MENDOZA Primary Care Provider BAYRON SORENSON Unavailable [phone] ALLERGIES Allergen (clinical drug ingredient) Drug/Non Drug Allergy documented on EMR Reaction Allergy Type Onset Date Status Penicillin Unknown Drug Allergy Active REASON FOR REFERRAL Reason 02/11/24 w appt Set up consultation with Dr. Gao from [place] [facility] for persistent cough x 6+ weeks despite treatments need to send copy of the x-rays my notes labs to him Diagnosis 1 Persistent cough (R0 5.3) [facility] Referring Provider First Name WAI Referring Provider Last Name REJI Referring Provider Speciality Internal [facility] Referred Provider COOKIE GAO Referred Provider Specialty Pulmonary [facility] General Notes EDSON,Annie P Admin 07/2023 01:51:23 PM > per [place] [facility] medical referral, notes and labs were faxed to [phone]>faxed xray separately Referral Priority Urgent Reason Referral Dr. Bayron Ornelas patient will call make appointment Diagnosis 1 Pain of right heel ( M79.671) [facility] Referring Provider First Name WAI Referring Provider Last Name REJI Referring Provider [facility] Referral Priority Routine MEDICATIONS Medication SIG (Take, [...] Gastro-esophage a l reflux disease without esophagitis (292101630) Problem Essential (primary) hypertension (I10) Active confirmed Essential hypertension (76436091) Problem Atrophy of thyroid (acquired) (E03.4) Active confirmed Atrophy of thyroid - acquired (347284716) Problem Disorder of lipoprotein metabolism, unspecified (E78.9) Active confirmed Disorder of lipoprotein storage and metabolism (disorder) (555617450) Problem Kidney stones (N20.0) Active confirmed 71594252 VITAL SIGNS Blood pressure diastolic 78 mm Hg 09/08/2024 Height 68 in 09/08/2024 Blood pressure systolic 123 mm Hg 09/08/2024 Weight 157 lbs 09/08/2024 BMI 23.87 kg/m2 09/08/2024 Encounters Encounter Location Date Provider Diagnosis [address] [address] 01/25/2024 WAI MENDOZA [address] [address] 01/25/2024 WAI MENDOZA Acute cough R05.[address] [address] 01/26/2024 WAI MENDOZA [address] [address] 01/27/2024 WAI MENDOZA Acute pneumonia J18. [address] [address] 01/29/2024 BAYRON SORENSON [address] [address] 01/29/[address] [facility] [address] [place] [address] 02/10/2024 WAI MENDOZA [facility] [address] [place] [address] 02/11/2024 WAI MENDOZA Persistent cough R05.3 ; Disorder of lipoprotein metabolism, unspecified E78.9 ; Atrophy of thyroid (acquired) E03.4 and Gastro-esophageal reflux disease without esophagitis K21.9 [facility] [address] [place] [address] 02/11/[address] [facility] [address] [place] [address] 02/11/2024 WAI MENDOZA [address] [address] 02/12/2024 WAI MENDOZA Essential (primary) hypertension I10 [address] [address] 02/24/2024 WAI MENDOZA [address] [address] 08/15/2024 WAI REJI [address] [address] 09/08/2024 WAI MENDOZA [address] [address] 09/08/2024 WAI MENDOZA Disorder of lipoprotein metabolism, [...] heel M79.671 and Right leg pain M79.[address] [address] 09/08/[address] [address] 09/10/2024 WAI MENDOZA [address] [address] 09/12/2024 WAI MENDOZA [address] [address] 09/12/2024 WAI MENDOZA [facility] [address] [place] [address] 09/13/2024 WAI MENDOZA ASSESSMENTS Encounter Date Diagnosis [...] Future Test Test Name Order Date Lipid Panel-[id number] 08/12/2023 Insurance Providers Payer Name Payer Address Payer Phone Subscriber Number Group Number Insured Name Patient Relationship to Insured Coverage Start Date Coverage End Date [facility] [address] [place] [address] [id number] Self - patient is the insured MEDICAL (GENERAL) HISTORY Medical History History ICD Code seasonal allergies thyroid hashimotos raynauds anxiety 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
== END 2024-12-12 16:13 | disposition home or self-care (01) ==
LOC: HO.HMGAL 16:12
PROVIDERS: PCP Internal Medicine; Visit Provider Registered Nurse Emergency
DX: J30.89 Other allergic rhinitis (principal)
CPT/HCPCS: 95117; 95165

== ENCOUNTER 2025-01-09 16:02 | Outpatient (AMB) | payer OTHER, SELFPAY | END 2025-01-09 16:03 | disposition home or self-care (01) | LOC: HO.HMGAL 16:02 | PROVIDERS: PCP Internal Medicine; Visit Provider Registered Nurse Emergency | DX: J30.89 Other allergic rhinitis (principal) | CPT/HCPCS: 95117; 95165 ==

== ENCOUNTER 2025-02-20 10:53 | Outpatient (AMB) | payer OTHER, SELFPAY | END 2025-02-20 10:54 | disposition home or self-care (01) | LOC: HO.HMGAL 10:53 | PROVIDERS: PCP Internal Medicine; Visit Provider Registered Nurse Emergency | DX: J30.89 Other allergic rhinitis (principal) | CPT/HCPCS: 95117; 95165 ==